=== PATIENT | female | born 2000 | race Two or more races ===

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

== ENCOUNTER 2020-02-21 18:45 | Emergency (ER) | payer OTHER ==
[~2020-02-21] VITALS: Ht 170.2 cm; Wt 64.1 kg
[2020-02-21 18:52] VITALS: BP 125/96
[2020-02-21] MEDS ORDERED: NEOSPORIN OINT. PKT 1 PACKET ONE (19:51)
== END 2020-02-21 19:51 | disposition home or self-care (01) ==
LOC: ED 19:45
DX: S61.252A Open bite of right middle finger without damage to nail, initial encounter (principal); W55.01XA Bitten by cat, initial encounter; Y93.89 Activity, other specified; Y92.009 Unspecified place in unspecified non-institutional (private) residence as the place of occurrence of the external cause; Y99.8 Other external cause status
CPT/HCPCS: 99283

== ENCOUNTER → 2020-03-26 | Outpatient (CLI) | payer OTHER ==
[2020-03-26 10:27] LABS: MEAN CORPUSCULAR HEMOGLOBIN 28.5 pg (27.0-34.8); MEAN CORPUSCULAR HGB CONC 32.9 g/dL (32.4-35.8); MEAN CORPUSCULAR VOLUME 86.7 fL (80-100); MEAN PLATELET VOLUME 8.5 fL (7.4-10.4); PLATELET COUNT 200 x10^3/uL (130-400); RED BLOOD COUNT 4.89 x10^6/uL (3.82-5.3); RED CELL DISTRIBUTION WIDTH 12.5 % (9.6-15.2)
[2020-03-26 10:32] LABS: FREE T4 (FREE THYROXINE) 1.02 ng/dL (0.76-1.46)
[2020-03-26 11:38] LABS: MD SCAN
[2020-03-26 11:39] LABS: BASOPHILS # (AUTO) 0.01 x10^3/uL (0-0.3); BASOPHILS % (AUTO) 0 % (0-1); EOSINOPHILS # (AUTO) 0.01 x10^3/uL (0-0.8); EOSINOPHILS % (AUTO) 0 % (1-7); LYMPHOCYTES # (AUTO) 1.18 x10^3/uL (1-6.1); LYMPHOCYTES % (AUTO) 36 % (22-44); MONOCYTES # (AUTO) 0.42 x10^3/uL (0-1.4); MONOCYTES % (AUTO) 13 % (2-9); NEUTROPHILS # (AUTO) 1.65 x10^3/uL (1.8-8.0); NEUTROPHILS % (AUTO) 50 % (42-75)
== END | disposition home or self-care (01) ==
LOC: LAB 09:56
PROVIDERS: ATTEND Dermatology
DX: L63.8 Other alopecia areata (principal)
CPT/HCPCS: 36415; 84439; 84443; 85025